=== PATIENT | female | born 1980 | race Caucasian/White ===

== ENCOUNTER → 2018-06-12 | Outpatient (CLI) | payer MEDICARE ==
[~2018-06-12] MED LIST: AZO95 MG PO; BENTYL10 MG PO; COZAAR 50 MG TA50 MG PO; FLEXERIL PO; HYDROCODON-ACE1 EAC7 PO; IBUPROFEN 600600 M1 PO; NORCO 5-325 TA1 EACH PO; TOPAMAX100 MG PO; TOPROL XL50 MG PO; ZOFRAN4 MG PO
== END ==
LOC: M.LAB 11:38
DX: I10 Essential (primary) hypertension (principal); R00.2 Palpitations

== ENCOUNTER 2020-03-28 13:22 | Observation (INO) | payer MEDICARE ==
[~2020-03-28] VITALS: Ht 172.7 cm; Wt 74.8 kg
[2020-03-28] VITALS (8 sets, daily range): BP systolic 99–156; BP diastolic 64–100
[2020-03-28] MEDS ORDERED: NORVASC5 M1 PO (13:31)
[2020-03-28] MEDS ORDERED: NAPROXEN SODIU220 M2 PO (13:31)
[2020-03-28] MEDS ORDERED: NEURONTIN 300M300 M2 PO (13:31)
[2020-03-28] MEDS ORDERED: TIZANIDINE HCL2 M1 PO (13:32)
[2020-03-28] MEDS ORDERED: BENADRYL25 MG PO (13:32)
[2020-03-28 13:42] LABS: ABSOLUTE EOSINOPHILS 0.2 thou/uL (0.0-0.7); ABSOLUTE LYMPHOCYTES 3.4 thou/uL (0.8-5.3); ABSOLUTE MONOCYTES 0.7 thou/uL (0.0-1.2); ABSOLUTE NEUTROPHILS 4.8 thou/uL (1.6-8.1); BASOPHILS 0.5 %; HEMATOCRIT 44.2 % (37.0-47.0); HEMOGLOBIN 15.1 gm/dL (12.0-15.0); LYMPHOCYTES 37.1 %; MCH 31.6 pg (26.0-34.0); MCHC 34.1 g/dL (28.0-37.0); MCV 92.8 fL (80.0-100.0); MPV 8.5 fl. (7.2-11.1); NUCLEATED RBCS 0 /100WBC; PLATELET COUNT* 357 thou/uL (150-400); POLYS 52.4 %; RBC 4.76 mil/uL (4.20-5.00); RDW-CV 13.7 % (10.5-14.5); WBC 9.2 thou/uL (4.0-11.0)
[2020-03-28 13:55] LABS: APTT 27.2 Seconds (25.0-31.3); CALCIUM 9.5 mg/dL (8.5-10.1); CREATININE 1.1 mg/dL (0.6-1.3); POTASSIUM 3.7 mmol/L (3.5-5.1); PROTIME 10.6 Seconds (9.20-11.50)
[2020-03-28 14:08] LABS: ALBUMIN 4.9 g/dL (3.4-5.0); CK-MB MASS 0.8 ng/mL (<0.5-3.6); MAGNESIUM 2.3 mg/dL (1.8-2.4); TOTAL BILIRUBIN 0.7 mg/dL (<0.1-1.0); TOTAL PROTEIN 8.5 g/dL (6.4-8.2)
[2020-03-28] MEDS ORDERED: XANAX 0.5 MG0.5 M1 PO (15:01)
[2020-03-28] MEDS ORDERED: HYDROCODON-ACE1 EAC8 PO (15:03)
[2020-03-28] MEDS ORDERED: TOPROL XL100 MG PO (15:31)
[2020-03-28] MEDS ORDERED: NORVASC5 MG PO (15:32)
[2020-03-28] MEDS ORDERED: NAPROSYN500 MG PO (15:38)
[2020-03-29 04:30] VITALS: BP 97/59
[2020-03-29 05:21] LABS: HEMATOCRIT 38.2 % (37.0-47.0); MCH 31.5 pg (26.0-34.0); MCHC 33.9 g/dL (28.0-37.0); MCV 93.1 fL (80.0-100.0); MPV 8.8 fl. (7.2-11.1); RBC 4.1 mil/uL (4.20-5.00)
[2020-03-29 05:26] LABS: HEMOGLOBIN 12.9 gm/dL (12.0-15.0)
[2020-03-29 05:30] LABS: CHLORIDE 104 mmol/L (98-107); SODIUM 139 mmol/L (136-145); TRIGLYCERIDE 101 mg/dL (<150); VLDL 20 mg/dL (<40)
[2020-03-29 05:35] LABS: ANION GAP 11 mmol/L (7-16); BUN 10 mg/dL (7-18); CALCIUM 8.3 mg/dL (8.5-10.1); CHOLESTEROL 158 mg/dL (<200); CO2 24 mmol/L (21-32); GLUCOSE 91 mg/dL (70-99); HDL CHOLESTEROL 37 mg/dL (>40); LDL CHOLESTEROL 101 mg/dL (<100); MAGNESIUM 2.7 mg/dL (1.8-2.4); POTASSIUM 3.5 mmol/L (3.5-5.1); TC:HDL 4.3 Ratio (Not establshd)
[2020-03-29 05:37] LABS: SERUM ASSESSMENT Clear
[2020-03-29 08:00] VITALS: BP 104/69
[2020-03-29 12:00] VITALS: BP 100/73
--- NOTE | 2020-03-29 12:17 | 2DMMODE ---
[place] [address] 2 D/M-MODE ECHOCARDIOGRAM Name: JOE AHUMADA Room: [address] Paulo#: [id number] Admission: 03/28/20 Attend Phys: Bronson Rivera, Discharge: Date of : 78 Date of Service: 03/29/20 1216 Report #: [id number] THIS REPORT FOR: cc: Shannan Garza MD, Jayne Lora MD Holkins,George Macias MD [facility] ~ APPROVED REPORT Study performed: 03/29/2020 09:58:46 EXAM: Comprehensive 2D, Doppler, and color-flow Echocardiogram Patient Location: Bedside BSA: 1.88 HR: 64 bpm BP: 104/69 mmHg Other Information Study Quality: Adequate Indications Chest Pain 2D Dimensions IVSd: 12.71 (7-11mm) LVOT Diam: 20.46 (18-24mm) LVDd: 37.17 mm PWd: 9.43 (7-11mm) Ascending Ao: 24.92 (22-36mm) LVDs: 25.81 (25-40mm) Aortic Root: 25.86 mm Volumes Left Atrial Volume (Systole) LA ESV Index: 17.80 mL/m2 Aortic Valve AoV Peak Yobani.: 1.07 m/s AO Peak Gr.: 4.57 mmHg LVOT Max P.15 mmHg AO Mean Gr.: 2.85 mmHg LVOT Mean P.41 mmHg LVOT Max V: 0.89 m/s AO V2 VTI: 19.87 cm LVOT Mean V: 0.54 m/s MICK (VTI): 2.73 cm2 LVOT V1 VTI: 16.48 cm Mitral Valve E/A Ratio: 0.94 [place] [address] 2 D/M-MODE ECHOCARDIOGRAM Name: JOE AHUMADA Room: [address]#: [id number] Admission: 03/28/20 Attend Phys: Bronson Rivera, Discharge: Date of : 78 Date of Service: 03/29/20 1216 Report #: [id number] MV Decel. Time: 277.64 ms MV E Max Yobani.: 0.72 m/s MV PHT: 80.52 ms MVA (PHT): 2.73 cm2 TDI E/Lateral E': 6.55 E/Medial E': 5.54 Medial E' Yobani.: 0.13 m/s Lateral E' Yobani.: 0.11 m/s Pulmonary Valve PV Peak Yobani.: 0.85 m/s PV Peak Gr.: 2.87 mmHg Tricuspid Valve RAP Estimate: 5.00 mmHg TR Peak Gr.: 26.60 mmHg RVSP: 31.60 mmHg PA Pressure: 31.60 mmHg Left Ventricle The left ventricle is normal size. There is normal LV segmental wall motion. There is normal left ventricular wall thickness. Left ventricular systolic function is normal. The left ventricular ejection fraction is within the normal range. LVEF is 55-60%. Grade I - abnormal relaxation pattern. Right Ventricle The right ventricle is normal size. The right ventricular systolic function is normal. Atria The left atrium size is normal. The right atrium size is normal. Aortic Valve The aortic valve is normal in structure. No aortic regurgitation is present. There is no aortic valvular stenosis. Mitral Valve The mitral valve is normal in structure. There is no mitral valve regurgitation noted. No evidence of mitral valve stenosis. Tricuspid Valve The tricuspid valve is normal in structure. Trace tricuspid regurgitation[place] [address] 2 D/M-MODE ECHOCARDIOGRAM Name: JOE AHUMADA [address] [id number] Admission: 03/28/20 Attend Phys: Bronson Rivera, Discharge: Date of : 78 Date of Service: 03/29/20 1216 Report #: [id number] The pulmonary valve is normal in structure. There is no pulmonic valvular regurgitation. Great Vessels The aortic root is normal in size. IVC is normal in size and collapses >50% with inspiration. Pericardium There is no pericardial effusion. <Conclusion> The left ventricle is normal size. There is normal left ventricular wall thickness. Left ventricular systolic function is normal. The left ventricular ejection fraction is within the normal range. LVEF is 55-60%. Grade I - abnormal relaxation pattern. The right ventricle is normal size. The left atrium size is normal. The aortic valve is normal in structure. The mitral valve is normal in structure. The tricuspid valve is normal in structure. IVC is normal in size and collapses >50% with inspiration. There is no pericardial effusion. There is normal LV segmental wall motion. <ELECTRONICALLY SIGNED> By: George Wasserman MD, FACC 03/29/20 121 15 15 George Wasserman MD, FACC /INF
[2020-03-29 13:24] VITALS: BP 100/73
--- NOTE | 2020-03-29 14:18 | EKG ---
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 : 1980 Requested By: Alan Quan Order Number: [id number] MD: George Wasserman Measurements Intervals [place] Rate: 97 P: 78 [place]: 154 QRS: -29 QRSD: 95 T: 13 QT: 365 QTc: 464 Interpretive Statements Sinus rhythm Biatrial enlargement RSR' in V1 or V2, probably normal variant Inferior infarct, old Baseline wander in lead(s) II,III,aVL,aVF,V3,V6 Compared to ECG 02/06/2014 12:59:09 RSR' in V1 or V2 now present Sinus tachycardia no longer present Electronically Signed On 03-29-2020 14:18:41 CDT by George Wasserman [email or web address] <ELECTRONICALLY SIGNED> By: George Wasserman MD, [facility] 03/29/20 1418 1328 1328 George Wasserman MD, [facility] /EPI
--- NOTE | 2020-03-29 14:22 | EKG ---
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 : 1980 Requested By: Osmel Davis Order Number: [id number] MD: George Wasserman Measurements Intervals [place] Rate: 80 P: 66 [place]: 164 QRS: 1 QRSD: 91 T: 33 QT: 406 QTc: 469 Interpretive Statements Sinus rhythm RSR' in V1 or V2, probably normal variant Compared to ECG 03/28/2020 13:28:45 Atrial premature complex(es) no longer present Atrial abnormality no longer present Myocardial infarct finding no longer present Electronically Signed On 03-29-2020 14:22:26 CDT by George Wasserman [email or web address] <ELECTRONICALLY SIGNED> By: George Wasserman MD, FAC 03/29/20 1422 37 37 George Wasserman MD, [facility] /EPI
--- NOTE | 2020-03-30 08:28 | CON ---
[address] [address] CONSULTATION Name: JOE AHUMADA Room: [address] Jerad Bates#: [id number] Admission: 03/28/20 Attend Phys: Bronson Rivera MD Discharge: 03/29/20 Date of : 78 Report #: [id number] THIS REPORT FOR: //name// cc: Shannan Garza MD, Jayne Lora MD ~ THIS REPORT FOR: //name// CC: Moo Mcclelland DATE OF SERVICE: 03/28/2020 CARDIOLOGY CONSULTATION INDICATION: Chest pain. HISTORY OF PRESENT ILLNESS: The patient is a 39-year-old young lady who is known to myself. She has a history of hypertension and palpitations for which we have had her on medication. At a recent visit, her antihypertensive medications were adjusted. An EKG appeared mildly abnormal and an echocardiogram was ordered and is pending. She reported some abnormalities on an MRI of her abdominal aorta and vascular screening had been ordered and is pending. She called today to report acute midsternal chest discomfort very sharp and painful, worse with deep breath, occurring since yesterday. No relieving symptoms. She has had some nausea, but no diaphoresis with the pain. She was without other specific cardiac complaint. Her blood pressure is moderately elevated in the Emergency Room. Heart rate relatively stable. Initial troponin is less than 0.06. D-dimer is normal. EKG at this time shows Q-waves inferiorly and evidence of biatrial enlargement. PAST MEDICAL HISTORY: 1. Hypertension. 2. Palpitations. 3. Tobacco use. 4. Abnormal EKG. FAMILY HISTORY: Positive for coronary artery disease. SOCIAL HISTORY: The patient smokes half a pack of cigarettes daily. She drinks alcohol occasionally. She is . Her is in attendance with her. HOME MEDICATIONS: Xanax 0.5 mg nightly p.r.n., Flexeril 10 mg t.i.d., Neurontin 300 mg t.i.d., [place] 7.5/325 q.6 hours p.r.n., Cozaar 50 mg daily, [place] [address] CONSULTATION Name: JOE AHUMADA Room: [address] Paulo#: [id number] Admission: 03/28/20 Attend Phys: Bronson Rivera MD Discharge: 03/29/20 Date of : 78 Report #: [id number] succinate 100 mg b.i.d., Topamax 200 mg by mouth daily, amlodipine 5 mg by mouth daily. ALLERGIES: LEVAQUIN, CHLORHEXIDINE, IODINE, PREDNISONE, SULFA ANTIBIOTICS, TAPES AND ADHESIVES, CHLORASEPTIC, LISINOPRIL, PROCARDIA. REVIEW OF SYSTEMS: As per HPI, otherwise, unremarkable. PHYSICAL EXAMINATION: VITAL SIGNS: Blood pressure 148/95, pulse is 78 and regular. GENERAL: This is a pleasant woman, who appears to be in moderate distress with midsternal chest discomfort. HEENT: Head is normocephalic, atraumatic. Extraocular muscles intact. Mucous membranes are moist. NECK: Shows no jugular venous distention. There are no carotid bruits. CHEST: Reveals clear lung rodriguez. I do not appreciate wheezes or rales. CARDIOVASCULAR: Reveals a regular rhythm. I do not appreciate gallop, rub or murmur. ABDOMEN: Reveals normal bowel sounds. The abdomen is soft, nontender. EXTREMITIES: Shows no edema. SKIN: Dry. Her digits do appear somewhat pale and constricted. LABORATORY DATA: A 12-lead EKG shows sinus rhythm. There are Q-waves inferiorly, which are new. There is enlarged P waves suggesting biatrial enlargement. I do not appreciate acute ST-segment abnormality. Chest x-ray pending. Initial troponin is less than 0.06. No other significant lab abnormalities noted. IMPRESSION AND RECOMMENDATIONS: 1. Chest pain, etiology not totally clear at this point in time. We will provide with nonsteroidal anti-inflammatory agent and morphine for pain relief. Consider GI cocktail if pain is unrelieved with this. Echocardiogram ordered and pending. 2. Hypertension. Blood pressure fairly stable at this time. The patient is concerned that she is having some reaction to the amlodipine. We will discontinue amlodipine and continue metoprolol and losartan at current doses. 3. Palpitations, presently stable. 4. Tobacco use, cessation discussed and advised. 5. Abnormal EKG. Echocardiogram ordered and pending. <ELECTRONICALLY SIGNED> By: Osmel Davis MD, FACC 03/30/20 0828 1406 1505Osmel Davis MD, FACC /nt
== END 2020-03-29 13:45 | disposition home or self-care (01) ==
LOC: M.ERS 13:22 → M.TBA-ER 13:34 → M.ERS 13:34 → M.TBA-ER 13:47 → M.2W 13:47
PROVIDERS: Family Medicine; ADMIT Internal Medicine; ATTEND Internal Medicine
DX: R07.89 Other chest pain (principal); I10 Essential (primary) hypertension; F41.1 Generalized anxiety disorder; M79.7 Fibromyalgia; F11.90 Opioid use, unspecified, uncomplicated; G89.29 Other chronic pain; T46.1X5A Adverse effect of calcium-channel blockers, initial encounter; F17.210 Nicotine dependence, cigarettes, uncomplicated; Y92.89 Other specified places as the place of occurrence of the external cause; Z79.899 Other long term (current) drug therapy; Z20.828 Contact with and (suspected) exposure to other viral communicable diseases

== ENCOUNTER 2020-03-31 14:22 | Emergency (ER) | payer MEDICARE ==
[~2020-03-31] VITALS: Ht 172.7 cm; Wt 74.8 kg
[~2020-03-31 14:22] MED LIST changes: +BENADRYL25 MG PO; +HYDROCODON-ACE1 EAC8 PO; +NAPROSYN500 MG PO; +NAPROXEN SODIU220 M2 PO; +NEURONTIN 300M300 M2 PO; +NORVASC5 M1 PO; +NORVASC5 MG PO; +TIZANIDINE HCL2 M1 PO; +TOPROL XL100 MG PO; +XANAX 0.5 MG0.5 M1 PO
[2020-03-31 14:51] LABS: ABSOLUTE BASOPHILS 0.1 thou/uL (0.0-0.2); ABSOLUTE EOSINOPHILS 0.2 thou/uL (0.0-0.7); ABSOLUTE MONOCYTES 0.6 thou/uL (0.0-1.2); EOSINOPHILS 3.1 %; HEMATOCRIT 40.3 % (37.0-47.0); HEMOGLOBIN 13.8 gm/dL (12.0-15.0); LYMPHOCYTES 37.2 %; MCH 31.5 pg (26.0-34.0); MCHC 34.2 g/dL (28.0-37.0); MONOCYTES 7.7 %; MPV 8.7 fl. (7.2-11.1); NUCLEATED RBCS 0 /100WBC; PLATELET COUNT* 328 thou/uL (150-400); RBC 4.38 mil/uL (4.20-5.00); RDW-CV 13.6 % (10.5-14.5); WBC 7.9 thou/uL (4.0-11.0)
[2020-03-31 15:04] LABS: CALCIUM 9.2 mg/dL (8.5-10.1); POTASSIUM 4.2 mmol/L (3.5-5.1)
[2020-03-31 15:05] LABS: APTT 27.2 Seconds (25.0-31.3); PROTIME 10.7 Seconds (9.20-11.50)
[2020-03-31 15:14] LABS: ALBUMIN 4.6 g/dL (3.4-5.0); MAGNESIUM 2.1 mg/dL (1.8-2.4); TOTAL BILIRUBIN 0.5 mg/dL (<0.1-1.0); TOTAL PROTEIN 7.9 g/dL (6.4-8.2)
[2020-03-31] MEDS ORDERED: NORCO 5-325 TA1 EAC2 PO (17:03)
[2020-03-31 17:09] VITALS: BP 133/87
--- NOTE | 2020-03-31 17:15 | EKG ---
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[place] : 1980 Requested By: Дмитрий Mathis Order Number: [id number] MD: George Wasserman Measurements Intervals [place] Rate: 78 P: 80 [place]: 166 QRS: -6 QRSD: 85 T: 55 QT: 389 QTc: 444 Interpretive Statements Sinus rhythm Biatrial enlargemen possible inferior scar RSR' in V1 or V2, right VCD Compared to ECG 03/28/2020 19:38:48 Atrial abnormality now present Electronically Signed On 03-31-2020 17:15:48 CDT by George Wasserman [email or web address] <ELECTRONICALLY SIGNED> By: George Wasserman MD, [facility] 03/31/20 1715 1505 1505 George Wasserman MD, [facility] /EPI
== END 2020-03-31 17:09 | disposition home or self-care (01) ==
LOC: M.ERS 14:22
PROVIDERS: Emergency Medicine Emergency Medical Services
DX: R07.9 Chest pain, unspecified (principal); R11.0 Nausea; I10 Essential (primary) hypertension; M79.7 Fibromyalgia; F17.200 Nicotine dependence, unspecified, uncomplicated; Z79.899 Other long term (current) drug therapy; Z88.8 Allergy status to other drugs, medicaments and biological substances; Z88.1 Allergy status to other antibiotic agents; Z88.2 Allergy status to sulfonamides; Z90.710 Acquired absence of both cervix and uterus

== ENCOUNTER → 2020-04-06 | Outpatient (CLI) | payer OTHER, MEDICARE ==
[~2020-04-06] MED LIST changes: +NORCO 5-325 TA1 EAC2 PO
--- NOTE | 2020-04-07 15:13 | CARDNUC ---
[place] [address] CARDIAC NUCLEAR IMAGING REPORT Name: JOE AHUMADA Room: [facility]#: [id number] Admission: 04/06/20 Attend Phys: Osmel Davis, Discharge: Date of : 78 Date of Service: 04/07/20 1512 Report #: [id number] THIS REPORT FOR: cc: Shannan Garza MD, Jayne Lora MD Park, Jin S. MD ~ APPROVED REPORT Imaging Protocol: Rest Tc-99m/Stress Tc-99m 1 day Study performed: 04/06/2020 10:10:52 Indication: Chest pain, ABN EKG, Palpitations, Tachycardia. Patient Location: Out-Patient Stress Tech: Maranda Hagen Stress Nurse: Shreya Loaiza R.N. Ht: 5 ft 8 in Wt: 162 lbs BSA: 1.87 m2 BMI: 24.62 Medical History Medical History: Angina, ABN EKG, Palpitations, Tachycardia, HTN, Current smoker, s/p back surgery, hip surgery, knee pain. Medications: Losartan, Metoprolol. Allergies: Levaquin, Chlorhexidine, Iodine Solution, Sulfa ABX, Tape/Adhesives, Chloraseptic, Lisinopril, Procardia. Cardiac Risk Factors: Current Smoker, FHX of CAD, HTN, Palpitations, Tachycardia. Previous Cardiac Procedures: None Pretest Chest Pain Characteristics: No chest pain Exercise History: Indeterminate Physical Disabilities: Recent back surgeries, hip surgery, knee pain. Meds Held (24 hrs): Metoprolol, Losartan. Resting Data Rest SPECT myocardial perfusion imaging was performed in supine position 30 minutes following the intravenous injection of 10.2 mCi of Tc-99m Sestamibi. Time of rest injection: 08:35 The images were gated to evaluate regional wall motion and calculate left ventricular ejection fraction. Administration Route: IV Administration Site: [place] [address] CARDIAC NUCLEAR IMAGING REPORT Name: JOE AHUMADA Room: [facility]#: [id number] Admission: 04/06/20 Attend Phys: Osmel Davis, Discharge: Date of : 78 Date of Service: 04/07/20 1512 Report #: [id number] Pharmacologic Stress Pharmacologic stress test was performed by injecting Regadenoson 0.4 mg IV push over 10-15 seconds immediately followed by the intravenous injection of 31.2 mCi of Tc-99m Sestamibi. Time of stress injection: 10:00 Administration Route: IV Administration Site: Left Arm Heart Rate at time of stress injection: 130 bpm. Gated Stress SPECT was performed 40 minutes after stress injection. The images were gated to evaluate regional wall motion and calculate left ventricular ejection fraction. Prone imaging was performed. Stress Test Details Stress Test: Pharmacologic stress testing performed using 0.4 mg of regadenoson per 5 mL given IV over 10 seconds. Reason for pharmacologic stress test: Recent back surgeries, hip surgery, knee pain.. HR Max Heart Rate (APMHR): 180 bpm Resting HR: 66 bpm Target HR (85% APMHR): 153 bpm Max HR Achieved: 130 bpm % of APMHR: 72 Recovery HR: 94 bpm BP Resting BP: 147/105 mmHg Max BP: 159/99 mmHg Recovery BP: 141/93 mmHg ECG Resting ECG: Sinus Rhythm Stress ECG: Sinus Rhythm ST Change: Non-ischemic Clinical Reason for Termination: Completed protocol Stress Symptoms: Throat tightness/lump, chest pinching 5/10, dizziness, stomach cramp. Exercise duration: 00 min 00 sec Exercise capacity: 1.00 METs Nurse Comments A 39 year old female presented s/p back surgeries for a sitting Lexiscan r/t chest pain, ABN EKG, Tachycardia, [place] [address] CARDIAC NUCLEAR IMAGING REPORT Name: JOE AHUMADA Room: [facility]#: [id number] Admission: 04/06/20 Attend Phys: Osmel Davis, Discharge: Date of : 78 Date of Service: 04/07/20 1512 Report #: [id number] well tolerated. Recovery unremarkable. Patient was stable and stated she felt good while being escorted to Nuclear Medicine for imaging. Study Quality Study: Good Study Data Post stress, the left ventricular ejection was 67%.. Perfusion Normal left ventricular perfusion. Normal perfusion on both the stress and rest images. Wall Motion Normal left ventricular wall motion. Nuclear Conclusion ECG Findings: negative for ischemia Clinical Findings: non-diagnostic Nuclear Findings: negative for ischemia Exercise Capacity: not assessed Left Ventricular Function: normal Risk Study: low This study is of low probability for inducible ischemia or prior infarct. Normal global and segmental LV systolic function. <ELECTRONICALLY SIGNED> By: Travis Collado MD 04/07/201511 11 11 Travis Collado MD /INF
== END ==
LOC: M.NUC 03-22 16:36
PROVIDERS: ATTEND Internal Medicine Cardiovascular Disease
DX: R07.2 Precordial pain (principal)

== ENCOUNTER 2021-02-01 13:04 | Emergency (ER) | payer OTHER, MEDICARE ==
[~2021-02-01] VITALS: Ht 175.3 cm; Wt 74.8 kg
[2021-02-01] MEDS ORDERED: METHYLPREDNISOL32 MG PO (13:18)
[2021-02-01 13:37] LABS: ABSOLUTE BASOPHILS 0.1 thou/uL (0.0-0.2); ABSOLUTE LYMPHOCYTES 1.3 thou/uL (0.8-5.3); ABSOLUTE MONOCYTES 0.4 thou/uL (0.0-1.2); ABSOLUTE NEUTROPHILS 9.4 thou/uL (1.6-8.1); BASOPHILS 0.7 %; EOSINOPHILS 0.2 %; HEMATOCRIT 40.1 % (37.0-47.0); HEMOGLOBIN 13.5 gm/dL (12.0-15.0); LYMPHOCYTES 11.7 %; MCH 31.4 pg (26.0-34.0); MCHC 33.7 g/dL (28.0-37.0); MCV 93.2 fL (80.0-100.0); MONOCYTES 3.3 %; NUCLEATED RBCS 0 /100WBC; PLATELET COUNT* 331 thou/uL (150-400); POLYS 84.1 %; RDW-CV 12.9 % (10.5-14.5); WBC 11.1 thou/uL (4.0-11.0)
[2021-02-01 13:50] LABS: ANION GAP 12 mmol/L (7-16); BUN 7 mg/dL (7-18); CALCIUM 8.8 mg/dL (8.5-10.1); CHLORIDE 104 mmol/L (98-107); CO2 23 mmol/L (21-32); CREATININE 0.9 mg/dL (0.6-1.3); GLUCOSE 111 mg/dL (70-99); POTASSIUM 4.4 mmol/L (3.5-5.1); SODIUM 139 mmol/L (136-145)
[2021-02-01 13:58] LABS: ALBUMIN 4.5 g/dL (3.4-5.0); ALKALINE PHOSPHATASE 72 U/L (46-116); CK-MB MASS < 0.5 ng/mL (<0.5-3.6); LIPASE 111 U/L (73-393); NT-PRO BRAIN NAT PEPTIDE 51 pg/mL (<300); SGOT 12 U/L (15-37); SGPT 26 U/L (30-65); TOTAL BILIRUBIN 0.3 mg/dL (<0.1-1.0); TOTAL PROTEIN 7.9 g/dL (6.4-8.2)
[2021-02-01] MEDS ORDERED: NITROSTAT0.4 M1 SUBLING (15:20)
[2021-02-01] MEDS ORDERED: HYDROCODONE-AP1 EA11 PO (16:04)
[2021-02-01 16:20] VITALS: BP 130/87
--- NOTE | 2021-02-02 09:32 | EKG ---
[place] [address] ELECTROCARDIOGRAM REPORT Name: JOE AHUMADA Room: [facility]#: [id number] Admission: 02/01/21 Attend Phys: Discharge: 02/01/21 Date of : 78 Date of Service: 02/01/21 1309 Report #: [id number] THIS REPORT FOR: //name// [facility] ED Test Date: 2021-02-01 Test Time: 13:09:09 Pat Name: PATRICIAJohn BRANDYN Department: Room: Gender: Manager Language: NIYA : 1980 Requested By: Alan Quan Order Number: [id number] MD: Lazaro Chew Measurements Intervals [place] Rate: 132 P: 81 [place]: 142 QRS: 3 QRSD: 80 T: 33 QT: 310 QTc: 460 Interpretive Statements Sinus tachycardia LAE, consider biatrial enlargement RSR' in V1 or V2, probably normal variant Baseline wander in lead(s) V2 Compared to ECG 03/31/2020 15:05:11 Sinus rhythm no longer present Electronically Signed On 02-02-2021 9:32:07 CDT by Lazaro Chew [email or web address] <ELECTRONICALLY SIGNED> By: Lazaro Chew MD, FAC 02/02/21 0932 1309 1309 Lazaro Chew MD, FAC /EPI
== END 2021-02-01 16:21 | disposition home or self-care (01) ==
LOC: M.ERS 13:04
PROVIDERS: Family Medicine
DX: R07.89 Other chest pain (principal); I10 Essential (primary) hypertension; F17.210 Nicotine dependence, cigarettes, uncomplicated; Z90.49 Acquired absence of other specified parts of digestive tract; Z90.710 Acquired absence of both cervix and uterus; Z79.899 Other long term (current) drug therapy; Z88.1 Allergy status to other antibiotic agents; Z88.2 Allergy status to sulfonamides; Z88.8 Allergy status to other drugs, medicaments and biological substances